=== PATIENT | male | born 1985 | race Caucasian/White ===

== ENCOUNTER 2019-01-27 07:53 | Emergency (ER) | payer MEDICAID ==
[~2019-01-27] VITALS: Ht 198.1 cm; Wt 136.1 kg
[2019-01-27 08:00] VITALS: BP_SYST 127
--- NOTE | 2019-01-27 08:10 | NUR ---
Patient to ER bed 4 to gown for evaluation. Side rails up. Report given to Bala ROLON.
--- NOTE | 2019-01-27 08:15 | NUR ---
Pt c/o low back strain s/p stepping out of vehicle. Pt ambulates w/o assist slow steady gait
--- NOTE | 2019-01-27 08:20 | NUR ---
ER at bedside examining patient.
[2019-01-27] MEDS ORDERED: MORPHINE SULFATE 10 MG/ML VIAL IM ONE (08:45)
[2019-01-27] MEDS ORDERED: ONDANSETRON 4 MG ODT TAB PO ONE (08:45)
[2019-01-27] MEDS ORDERED: HYDROcodone/ACETAMIN 5-325 MG TAB (NORCO/ VICODIN) PO ONE (09:15)
--- NOTE | 2019-01-27 09:25 | NUR ---
Pt refused IM medication and anti-nausea. Dr. Grigsby informed.
--- NOTE | 2019-01-27 09:30 | NUR ---
Pt refused medication,pt to take RX medication for pain relief.
[2019-01-27 09:48] VITALS: BP_SYST 127
--- NOTE | 2019-01-27 09:48 | NUR ---
Patient given written and verbal discharge instructions and verbalizes understanding. ER MD discussed with patient the results and treatment provided. Patient in stable condition. ID arm band removed. Rx of norco,naproxen given. Patient educated on pain management and to follow up with PMD. Pain Scale 5. Opportunity for questions provided and answered. Medication side effect fact sheet provided.
== END 2019-01-27 09:48 | disposition home or self-care (01) ==
LOC: SED 07:53
DX: M54.5 Low back pain (principal); Z88.1 Allergy status to other antibiotic agents; Z88.8 Allergy status to other drugs, medicaments and biological substances
CPT/HCPCS: 72100; 99283; J2270; Q0162

== ENCOUNTER 2020-07-17 13:02 | Emergency (ER) | payer MEDICAID ==
[~2020-07-17] VITALS: Ht 190.5 cm; Wt 145.1 kg
[2020-07-17 13:19] VITALS: BP_SYST 125
[2020-07-17 14:04] LABS: BASOPHILS # (AUTO) 0.1 K/uL (0.0-0.2); BASOPHILS % (AUTO) 1.1 % (0.0-2.0); EOSINOPHILS % (AUTO) 0.3 % (0.0-4.0); HEMATOCRIT 43.5 % (36-54); HEMOGLOBIN 14.4 g/dL (14.0-18.0); LYMPHOCYTES # (AUTO) 1.6 K/uL (1.0-5.5); LYMPHOCYTES % (AUTO) 11.5 % (20.5-51.5); MEAN CORPUSCULAR HEMOGLOBIN 29 pg (27-31); MEAN CORPUSCULAR HGB CONC 33 % (32-36); MEAN CORPUSCULAR VOLUME 88 fL (79.0-98.0); MONOCYTES # (AUTO) 1.5 K/uL (0.0-1.0); NEUTROPHILS # (AUTO) 10.5 K/uL (1.8-7.7); NEUTROPHILS % (AUTO) 76.1 % (40.0-70.0); PLATELET COUNT (AUTO) 133 K/uL (130-430); RED BLOOD CELL COUNT(AUTO) 4.93 MIL/uL (4.2-6.2); RED CELL DISTRIBUTION WIDTH 13.2 % (9.0-15.0); WHITE BLOOD COUNT (AUTO) 13.8 K/uL (4.8-10.8)
[2020-07-17 14:21] LABS: ANION GAP 8 (5-15); CALCIUM 9.7 mg/dL (8.4-11.0); CHLORIDE 100 mmol/L (98-107); CREATININE 1.19 mg/dL (0.55-1.30); POTASSIUM 4.4 mmol/L (3.5-5.1); SODIUM SERUM 138 mmol/L (136-145); UREA NITROGEN, BLOOD 13 mg/dL (8-21)
[2020-07-17 14:26] LABS: ALANINE AMINOTRANSFERASE 37 U/L (12-78); ALBUMIN 3.7 g/dL (3.4-4.8); AMYLASE 44 U/L (0-100); ASPARTATE AMINOTRANSFERASE 14 U/L (10-37); LIPASE 72 U/L (73-393); TOTAL BILIRUBIN 0.3 mg/dL (0.0-1.0)
[2020-07-17 14:27] LABS: GFR AFRICAN AMERICAN 89 mL/min (>90)
[2020-07-17 14:28] LABS: ACETONE, SERUM NEGATIVE (NEGATIVE)
[2020-07-17 14:31] LABS: C-REACTIVE PROTEIN QUANT 4.7 mg/dL (0-0.5); GLUCOSE 165 mg/dL (70-99)
[2020-07-17 14:58] LABS: BILIRUBIN,URINE NEGATIVE (NEGATIVE); CLARITY/URINE CLEAR (CLEAR); COLOR,URINE YELLOW (YELLOW); GLUCOSE,URINE NEGATIVE (NEGATIVE); KETONES,URINE NEGATIVE (NEGATIVE); LEUKOCYTE ESTERASE ,URINE 2+ (NEGATIVE); NITRITE, URINE NEGATIVE (NEGATIVE); PH,URINE 7.5 (5.0-8.0); PROTEIN URINE NEGATIVE (NEGATIVE); UROBILINOGEN,URINE 0.2 (0.2-1.0)
[2020-07-17 15:07] LABS: BLOOD, URINE TRACE (NEGATIVE)
[2020-07-17 15:08] LABS: BACTERIA,URINE FEW /HPF (None Seen); MUCUS,URINE None Seen /LPF (None Seen); RBC,URINE 0-3 /HPF (0-3); WBC,URINE 20-50 /HPF (0-3)
[2020-07-17] MEDS ORDERED: cefTRIAXone 1 GM IVPB PREMIX 50 ML IV ONE (15:15)
[2020-07-17] MEDS ORDERED: IBUPROFEN 800 MG TABLET PO ONE (15:15)
[2020-07-17 15:17] VITALS: BP_SYST 125
[2020-07-17] MEDS ORDERED: IBUP-1971 PO (15:20)
[2020-07-17] MEDS ORDERED: CEPH250C PO (15:20)
== END 2020-07-17 15:18 | disposition home or self-care (01) ==
LOC: SED 13:02
DX: R50.9 Fever, unspecified (principal); Z88.6 Allergy status to analgesic agent; Z88.1 Allergy status to other antibiotic agents
CPT/HCPCS: 36415; 71045; 80053; 81000; 82009; 82150; 83605; 83690; 85025; 86140; 87040; 87086; 96365; 99284; J0696

== ENCOUNTER 2020-07-19 10:12 | Emergency (ER) | payer MEDICAID ==
[~2020-07-19] VITALS: Ht 193 cm; Wt 136.1 kg
[~2020-07-19 10:12] MED LIST: CEPH250C PO; IBUP-1971 PO
[2020-07-19 10:37] VITALS: BP_SYST 135
[2020-07-19 11:13] LABS: BASOPHILS % (AUTO) 0.3 % (0.0-2.0); EOSINOPHILS # (AUTO) 0.1 K/uL (0.0-0.4); EOSINOPHILS % (AUTO) 1.3 % (0.0-4.0); HEMATOCRIT 39.6 % (36-54); HEMOGLOBIN 13.2 g/dL (14.0-18.0); LYMPHOCYTES # (AUTO) 1.1 K/uL (1.0-5.5); LYMPHOCYTES % (AUTO) 17.1 % (20.5-51.5); MEAN CORPUSCULAR HEMOGLOBIN 30 pg (27-31); MEAN CORPUSCULAR HGB CONC 33 % (32-36); MEAN CORPUSCULAR VOLUME 89 fL (79.0-98.0); MONOCYTES # (AUTO) 0.8 K/uL (0.0-1.0); NEUTROPHILS # (AUTO) 4.3 K/uL (1.8-7.7); NEUTROPHILS % (AUTO) 68.3 % (40.0-70.0); PLATELET COUNT (AUTO) 128 K/uL (130-430); RED BLOOD CELL COUNT(AUTO) 4.46 MIL/uL (4.2-6.2); WHITE BLOOD COUNT (AUTO) 6.3 K/uL (4.8-10.8)
[2020-07-19 12:55] VITALS: BP_SYST 135
== END 2020-07-19 12:55 | disposition home or self-care (01) ==
LOC: SED 10:12
DX: R50.9 Fever, unspecified (principal); Z88.1 Allergy status to other antibiotic agents; Z79.899 Other long term (current) drug therapy
CPT/HCPCS: 36415; 83605; 85025; 86140; 99283

== ENCOUNTER 2022-08-18 14:27 | Emergency (ER) | payer MEDICAID ==
[~2022-08-18] VITALS: Ht 185.4 cm; Wt 141.1 kg
--- NOTE | 2022-08-18 14:30 | NUR ---
Pt brought by self, A&Ox4, pt presents to ER with R toe/ redness/pain for few weeks, skin pink and warm, afebrile, respirations even and unlabored, cap refill <3.
[2022-08-18 14:34] VITALS: BP_SYST 136
--- NOTE | 2022-08-18 15:14 | NUR ---
Pt refusing BS check or blood work.
--- NOTE | 2022-08-18 15:14 | NUR ---
Report given to Mavis ROLON
[2022-08-18] MEDS ORDERED: CLINDAMYCIN HCL 150 MG CAPSULE PO ONE (16:00)
[2022-08-18] MEDS ORDERED: ACETAMINOPHEN 500 MG TABLET PO ONE (16:00)
[2022-08-18] MEDS ORDERED: cephALEXin 500 MG CAPSULE PO ONE (16:00)
--- NOTE | 2022-08-18 16:00 | NUR ---
ER at bedside examining patient.
[2022-08-18] MEDS ORDERED: CLE150 PO (16:08)
[2022-08-18] MEDS ORDERED: NAPR-1172 PO (16:08)
[2022-08-18] MEDS ORDERED: ACETAMINOPHEN 500 MG TABLET ONE ×2 (16:11→16:13)
--- NOTE | 2022-08-18 16:12 | NUR ---
Patient given written and verbal discharge instructions and verbalizes understanding. ER MD discussed with patient the results and treatment provided. Patient in stable condition. ID arm band removed. Rx of CLEOCIN AND NAPROSYN given. Patient educated on pain management and to follow up with PMD. Opportunity for questions provided and answered. Medication side effect fact sheet provided.
[2022-08-18 16:13] VITALS: BP_SYST 136
== END 2022-08-18 16:12 | disposition home or self-care (01) ==
LOC: SED 14:27
DX: L03.031 Cellulitis of right toe (principal); E11.9 Type 2 diabetes mellitus without complications; Z88.1 Allergy status to other antibiotic agents; Z88.8 Allergy status to other drugs, medicaments and biological substances; Z79.899 Other long term (current) drug therapy
CPT/HCPCS: 99283